=== PATIENT | male | born 1945 | race African-American/Black ===

== ENCOUNTER 2017-01-23 21:27 | Emergency (ER) | payer MEDICARE, MEDICAID ==
[~2017-01-23] VITALS: Ht 177.8 cm; Wt 73.0 kg
[~2017-01-23 21:27] MED LIST: COPAXONE; LYRICA; TYLENOL #3
[2017-01-23] MEDS ORDERED: NA PHOS,M-B/NA PHOS,DI-BA ENEMA 118ML PR ONE (21:45)
[2017-01-23] MEDS ORDERED: LACTULOSE 20G/30ML UDC PO ONE (21:45)
[2017-01-24 02:08] VITALS: BP 111/56
== END 2017-01-24 03:22 | disposition home or self-care (01) ==
LOC: ER 21:27
DX: K59.00 Constipation, unspecified (principal); R03.0 Elevated blood-pressure reading, without diagnosis of hypertension; G35 Multiple sclerosis
CPT/HCPCS: 74000; 99283

== ENCOUNTER 2017-02-19 23:11 | Inpatient (IN) | payer MEDICARE, MEDICAID ==
[~2017-02-19] VITALS: Ht 165.1 cm; Wt 64.9 kg
[2017-02-19] MEDS ORDERED: SODIUM CHLORIDE 0.9% 1,000 ML IV ONE (23:39)
[2017-02-19] MEDS ORDERED: ACETAMINOPHEN 325MG TABLET PO STA (23:39)
[2017-02-19] MEDS ORDERED: PIPERACILLIN/TAZ 3.375G PREMIX 50 ML IV ONE (23:45)
[2017-02-19] MEDS ORDERED: METRONIDAZOLE 500 MG PREMIX 100 ML IV ONE (23:45)
[2017-02-20 00:27] LABS: BASOPHILS % 0.4 % (0.0-2.0); EOSINOPHILS % 2.8 % (0.0-5.0); HEMATOCRIT. 35.2 % (42.0-52.0); HEMOGLOBIN. 11.7 g/dL (14.0-18.0); MEAN CORPUSCULAR HEMOGLOBIN 27.4 pg (28.0-32.0); MEAN CORPUSCULAR VOLUME 82.2 fL (80.0-94.0); NEUTROPHILS % 68.8 % (40.0-76.0); PLATELET 212 x1000/uL (130-400); RED BLOOD CELL COUNT 4.28 mill/uL (4.7-6.1); RED CELL DISTRIBUTION WIDTH 17.3 % (11.6-14.6)
[2017-02-20] MEDS ORDERED: LEVOFLOXACIN 250MG TABLET PO ONE (00:30)
[2017-02-20] MEDS ORDERED: METRONIDAZOLE 500MG TABLET PO ONE (00:30)
[2017-02-20 00:31] LABS: INR 1.2; PROTHROMBIN TIME 12.3 sec (9.4-11.6)
[2017-02-20 00:33] LABS: CARBON DIOXIDE 26 mEq/L (21-32); CHLORIDE 105 mEq/L (98-107); ETHANOL BLOOD < 10 mg/dL; TROPONIN I < 0.02 ng/mL (0.00-0.04)
[2017-02-20 02:20] VITALS: BP 135/61
[2017-02-20 04:00] VITALS: BP 135/61
[2017-02-20] MEDS ORDERED: DIPHENHYDRAMINE 50MG/ML VIAL IV PRN (06:30)
[2017-02-20] MEDS ORDERED: IPRATROPIUM/ALBUTEROL 0.5-3(2.5)MG/3ML NEB INH PRN (06:30)
[2017-02-20] MEDS ORDERED: LORAZEPAM 2MG/ML CPJ IV PRN (06:30)
[2017-02-20] MEDS ORDERED: ONDANSETRON HCL 4MG/2ML VIAL IV PRN (06:30)
[2017-02-20] MEDS ORDERED: MAGNESIUM/ALUMINUM HYDROXIDE/SIMETHICONE 30ML UDC PO PRN (06:30)
[2017-02-20] MEDS ORDERED: CLONIDINE 0.1MG TABLET PO PRN (06:30)
[2017-02-20] MEDS ORDERED: GUAIFENESIN 200MG/10ML SUGAR FREE UDC PO PRN (06:30)
[2017-02-20] MEDS ORDERED: ACETAMINOPHEN 325MG TABLET PO PRN (06:30)
[2017-02-20] MEDS ORDERED: NA PHOS,M-B/NA PHOS,DI-BA ENEMA 118ML PR PRN (06:30)
[2017-02-20] MEDS: METRONIDAZOLE 500MG TABLET PO SCH ×3 (07:00→21:44)
[2017-02-20] MEDS: SUCRALFATE 1 G/10 ML UDC PO SCH ×4 (07:00→21:42)
[2017-02-20 08:00] VITALS: BP 113/58
[2017-02-20] MEDS: ENOXAPARIN 40MG/0.4ML SYR SUBCUT SCH (08:19)
[2017-02-20] MEDS: PREGABALIN 75MG CAPSULE PO SCH ×2 (08:19→21:43)
[2017-02-20] MEDS: FAMOTIDINE 20MG TABLET PO SCH ×2 (08:19→21:43)
[2017-02-20] MEDS ORDERED: DOCUSATE SODIUM 100MG CAPSULE PO PRN (09:00)
[2017-02-20 16:00] VITALS: BP 139/75
[2017-02-20 20:00] VITALS: BP 147/65
[2017-02-20] MEDS ORDERED: ZOLPIDEM TARTRATE 5MG TABLET PO PRN (21:00)
[2017-02-20] MEDS: TRAMADOL 50MG TABLET PO PRN (21:43)
[2017-02-21] VITALS: BP 122/64
[2017-02-21 04:00] VITALS: BP 122/69
[2017-02-21] MEDS: METRONIDAZOLE 500MG TABLET PO SCH ×3 (06:31→21:16)
[2017-02-21] MEDS: TRAMADOL 50MG TABLET PO PRN ×2 (06:32→15:55)
[2017-02-21] MEDS: SUCRALFATE 1 G/10 ML UDC PO SCH ×4 (06:32→21:12)
[2017-02-21 08:00] VITALS: BP 129/69
[2017-02-21] MEDS: ENOXAPARIN 40MG/0.4ML SYR SUBCUT SCH (09:00)
[2017-02-21] MEDS: FAMOTIDINE 20MG TABLET PO SCH ×2 (09:27→21:12)
[2017-02-21] MEDS: PREGABALIN 75MG CAPSULE PO SCH ×2 (09:27→21:12)
[2017-02-21] MEDS: LEVOFLOXACIN 500MG TABLET PO SCH (11:10)
[2017-02-21 12:00] VITALS: BP 127/73
[2017-02-21 17:19] VITALS: BP 135/66
[2017-02-22] VITALS: BP 132/71
[2017-02-22] MEDS: TRAMADOL 50MG TABLET PO PRN ×2 (03:28→11:19)
[2017-02-22 04:00] VITALS: BP 130/76
[2017-02-22] MEDS: SUCRALFATE 1 G/10 ML UDC PO SCH ×2 (06:16→11:18)
[2017-02-22] MEDS: METRONIDAZOLE 500MG TABLET PO SCH (06:16)
[2017-02-22 08:00] VITALS: BP_SYST 128; BP_DIAS 70; BP_DIAS 73
[2017-02-22] MEDS: PREGABALIN 75MG CAPSULE PO SCH (08:49)
[2017-02-22] MEDS: ENOXAPARIN 40MG/0.4ML SYR SUBCUT SCH (08:49)
[2017-02-22] MEDS: FAMOTIDINE 20MG TABLET PO SCH (08:49)
[2017-02-22] MEDS: LEVOFLOXACIN 500MG TABLET PO SCH (11:19)
[2017-02-22 12:00] VITALS: BP 137/74
[2017-02-22 13:59] VITALS: BP 128/73
== END 2017-02-22 15:59 | disposition home health service (06) | DRG 392 ==
LOC: ER 23:11 → 8WST 02-20 01:25 → EDBEDREQ 02-20 01:33 → ENRESERV 02-20 01:55
PROVIDERS: ADMIT Internal Medicine; ATTEND Internal Medicine
DX: K52.9 Noninfective gastroenteritis and colitis, unspecified (principal); E44.0 Moderate protein-calorie malnutrition; G35 Multiple sclerosis; D63.8 Anemia in other chronic diseases classified elsewhere; E87.6 Hypokalemia; Z99.3 Dependence on wheelchair; Z68.23 Body mass index [BMI] 23.0-23.9, adult; Z79.899 Other long term (current) drug therapy
CPT/HCPCS: 36415; 71010; 74176; 80053; 83605; 83880; 84484; 85025; 85610; 87015; 87040; 87045; 87427; 87449; 87493; 93005; 93970; 97162; 99285; G0482; J1650; J2060; J2543; J3490; J7030

== ENCOUNTER 2017-02-27 15:03 | Emergency (ER) | payer MEDICARE, MEDICAID ==
[~2017-02-27] VITALS: Ht 170.2 cm; Wt 60.0 kg
[2017-02-27 17:33] LABS: HEMATOCRIT. 39.8 % (42.0-52.0); HEMOGLOBIN. 13.1 g/dL (14.0-18.0); MEAN CORPUSCULAR HEMOGLOBIN 26.6 pg (28.0-32.0); MEAN CORPUSCULAR VOLUME 80.8 fL (80.0-94.0); MEAN PLATELET VOLUME 9.1 fl (7.4-10.4); PLATELET 306 x1000/uL (130-400); RED BLOOD CELL COUNT 4.93 mill/uL (4.7-6.1); RED CELL DISTRIBUTION WIDTH 17.9 % (11.6-14.6)
[2017-02-27 17:34] LABS: CARBON DIOXIDE 26 mEq/L (21-32); CHLORIDE 108 mEq/L (98-107)
[2017-02-27 17:37] LABS: INR 1.2; PROTHROMBIN TIME 12.1 sec (9.4-11.6)
[2017-02-27 17:43] LABS: CLARITY URINE CLEAR (CLEAR); COLOR URINE DARK YELLOW (YELLOW); GLUCOSE URINE NEGATIVE (NEGATIVE); KETONES URINE TRACE (NEGATIVE); LEUKOCYTE ESTERASE URINE NEGATIVE (NEGATIVE); NITRITE URINE NEGATIVE (NEGATIVE); OCCULT BLOOD URINE 2+ (NEGATIVE); PROTEIN URINE 1+ (NEGATIVE); SPECIFIC GRAVITY URINE 1.029 (1.005-1.030); UROBILINOGEN URINE 0.2 E.U./dL (0.2-1.0)
[2017-02-27 18:30] LABS: PLATELET ESTIMATE NORMAL
[2017-02-28 10:05] VITALS: BP 120/64
== END 2017-02-28 10:23 | disposition home or self-care (01) ==
LOC: ER 15:32 → CANBEDREQ 22:06 → ER 02-28 10:23
DX: R19.7 Diarrhea, unspecified (principal); R00.0 Tachycardia, unspecified; J98.11 Atelectasis; G35 Multiple sclerosis
CPT/HCPCS: 36415; 71010; 80053; 81001; 83605; 85025; 85610; 87040; 87086; 87493; 93005; 99285

== ENCOUNTER 2017-03-22 14:54 | Emergency (ER) | payer MEDICARE, MEDICAID ==
[~2017-03-22] VITALS: Ht 165.1 cm; Wt 66.0 kg
[2017-03-22 16:13] LABS: BASOPHILS % 0.3 % (0.0-2.0); EOSINOPHILS % 1.8 % (0.0-5.0); HEMATOCRIT. 37.5 % (42.0-52.0); HEMOGLOBIN. 12.6 g/dL (14.0-18.0); LYMPHOCYTES % 14.4 % (20.0-50.0); MEAN CORPUSCULAR VOLUME 80.3 fL (80.0-94.0); MEAN PLATELET VOLUME 8.4 fl (7.4-10.4); MONOCYTES % 9.1 % (2.0-8.0); NEUTROPHILS % 74.4 % (40.0-76.0); PLATELET 207 x1000/uL (130-400); RED BLOOD CELL COUNT 4.67 mill/uL (4.7-6.1); RED CELL DISTRIBUTION WIDTH 18.3 % (11.6-14.6)
[2017-03-22 16:19] LABS: CHLORIDE 108 mEq/L (98-107)
[2017-03-22 16:27] LABS: CARBON DIOXIDE 25 mEq/L (21-32)
[2017-03-22 17:51] LABS: CLARITY URINE CLEAR (CLEAR); COLOR URINE YELLOW (YELLOW); GLUCOSE URINE NEGATIVE (NEGATIVE); KETONES URINE 2+ (NEGATIVE); LEUKOCYTE ESTERASE URINE NEGATIVE (NEGATIVE); NITRITE URINE NEGATIVE (NEGATIVE); OCCULT BLOOD URINE 2+ (NEGATIVE); PH URINE 5.5 (4.5-8.0); PROTEIN URINE NEGATIVE (NEGATIVE); SPECIFIC GRAVITY URINE 1.024 (1.005-1.030)
[2017-03-22] MEDS ORDERED: KETOROLAC 60MG/2ML VIAL IM ONE (18:00)
[2017-03-22 18:20] LABS: *AMPHETAMINES SCREEN URINE NEGATIVE (NEGATIVE); *BARBITURATES SCREEN URINE NEGATIVE (NEGATIVE); *BENZODIAZEPINES SCREEN URINE NEGATIVE (NEGATIVE); *COCAINE SCREEN URINE NEGATIVE (NEGATIVE); CANNABINOID URINE SCREEN NEGATIVE (NEGATIVE); METHADONE URINE SCREEN NEGATIVE (NEGATIVE); OPIATES URINE SCREEN NEGATIVE (NEGATIVE); PHENCYCLIDINE URINE SCREEN NEGATIVE (NEGATIVE)
[2017-03-22 20:55] VITALS: BP 132/77
== END 2017-03-22 21:06 | disposition home or self-care (01) ==
LOC: ER 15:02
DX: G89.29 Other chronic pain (principal); G35 Multiple sclerosis
CPT/HCPCS: 36415; 80053; 80305; 81001; 85025; 96372; 99284; J1885

== ENCOUNTER 2019-09-21 00:27 | Inpatient (IN) | payer MEDICARE, MEDICAID ==
[~2019-09-21] VITALS: Ht 165.1 cm; Wt 66.7 kg
[~2019-09-21 00:27] MED LIST changes: +COPAJ SUBCUT; -COPAXONE; +FERR325T6 MT; -LYRICA; +PANT40TA4 MT; +PREG100C MT; +SUCR1ORA15 PO
[2019-09-21] MEDS ORDERED: PANTOPRAZOLE 80 MG in SODIUM CHLORIDE 0.9% 100 ML IV STA (00:43)
[2019-09-21] MEDS ORDERED: SODIUM CHLORIDE 0.9% 1,000 ML IV ONE ×2 (00:43→03:08)
[2019-09-21] MEDS ORDERED: ONDANSETRON HCL 4MG/2ML INJ IV STA (00:43)
[2019-09-21] MEDS ORDERED: PANTOPRAZOLE SODIUM 40 MG/VIAL IV STA (00:43)
[2019-09-21 01:36] LABS: CHLORIDE 106 mEq/L (98-107); MEAN CORPUSCULAR HEMOGLOBIN 28.7 pg (28.0-32.0); MEAN CORPUSCULAR VOLUME 91.4 fL (80.0-94.0); PLATELET 283 x1000/uL (130-400); RED BLOOD CELL COUNT 1.55 mill/uL (4.7-6.1); RED CELL DISTRIBUTION WIDTH 19.2 % (11.6-14.6)
[2019-09-21 01:39] LABS: PROTHROMBIN TIME 11.2 sec (9.6-11.0)
[2019-09-21 01:50] LABS: HEMATOCRIT. 14.1 % (42.0-52.0); HEMOGLOBIN. 4.4 g/dL (14.0-18.0)
[2019-09-21 02:13] LABS: PLATELET ESTIMATE NORMAL
[2019-09-21] MEDS ORDERED: CLONIDINE 0.1MG TABLET PO PRN (07:15)
[2019-09-21] MEDS ORDERED: PANTOPRAZOLE SODIUM 40 MG/VIAL IV SCH (07:15)
[2019-09-21] MEDS ORDERED: HYDROCODONE/ACETAMINOPHEN 5/325MG TABLET PO PRN (07:15)
[2019-09-21] MEDS ORDERED: ONDANSETRON HCL 4MG/2ML INJ IV PRN (07:15)
[2019-09-21] MEDS: SODIUM CHLORIDE 0.9% 1,000 ML IV SCH ×2 (10:02→17:52)
[2019-09-21] MEDS: PANTOPRAZOLE SODIUM 40 MG/VIAL IV SCH ×3 (10:18→22:30)
[2019-09-21] MEDS ORDERED: LEVOFLOXACIN 500MG PREMIX 100 ML IV SCH (10:20)
[2019-09-21 11:18] LABS: HEMATOCRIT 21.9 % (42.0-52.0); HEMOGLOBIN 7.3 g/dL (14.0-18.0)
[2019-09-21 15:25] LABS: CLARITY URINE CLEAR (CLEAR); COLOR URINE YELLOW (YELLOW); KETONES URINE 2+ (NEGATIVE); LEUKOCYTE ESTERASE URINE NEGATIVE (NEGATIVE); NITRITE URINE NEGATIVE (NEGATIVE); OCCULT BLOOD URINE NEGATIVE (NEGATIVE); PH URINE 5.5 (4.5-8.0); PROTEIN URINE NEGATIVE (NEGATIVE); SPECIFIC GRAVITY URINE 1.017 (1.005-1.030)
[2019-09-21 15:39] LABS: *COCAINE SCREEN URINE NEGATIVE (NEGATIVE); METHADONE URINE SCREEN NEGATIVE (NEGATIVE)
[2019-09-21 15:40] LABS: *AMPHETAMINES SCREEN URINE NEGATIVE (NEGATIVE); *BARBITURATES SCREEN URINE NEGATIVE (NEGATIVE); *BENZODIAZEPINES SCREEN URINE NEGATIVE (NEGATIVE); CANNABINOID URINE SCREEN NEGATIVE (NEGATIVE); OPIATES URINE SCREEN PRESUMTIVE POSITIVE (NEGATIVE); PHENCYCLIDINE URINE SCREEN NEGATIVE (NEGATIVE)
[2019-09-21 15:55] VITALS: BP 102/38
[2019-09-21] MEDS ORDERED: CODE30TA2 MT (16:22)
[2019-09-21] MEDS: LORAZEPAM 2MG/ML CPJ IV PRN (17:53)
[2019-09-21 20:00] VITALS: BP 103/50
[2019-09-21] MEDS: PREGABALIN 50 MG CAPSULE PO SCH (20:32)
[2019-09-22] VITALS (9 sets, daily range): BP systolic 93–114; BP diastolic 41–56
[2019-09-22] MEDS: LORAZEPAM 2MG/ML CPJ IV PRN ×2 (01:43→15:55)
[2019-09-22] MEDS: SODIUM CHLORIDE 0.9% 1,000 ML IV SCH ×3 (03:02→23:02)
[2019-09-22] MEDS: PANTOPRAZOLE SODIUM 40 MG/VIAL IV SCH ×3 (09:00→21:00)
[2019-09-22] MEDS: PREGABALIN 50 MG CAPSULE PO SCH ×2 (09:29→23:03)
[2019-09-22] MEDS ORDERED: POTASSIUM CHLORIDE 20MEQ TABLET SR PO ONE (09:30)
[2019-09-22] MEDS ORDERED: POTASSIUM CHLORIDE 20MEQ TABLET SR PO NR ×2 (09:30→17:45)
[2019-09-22] MEDS: LEVOFLOXACIN 500MG PREMIX 100 ML IV SCH ×2 (11:00→14:32)
[2019-09-22 16:06] LABS: CHLORIDE 105 mEq/L (98-107)
[2019-09-22 16:07] LABS: PARTIAL THROMBOPLASTIN TIME 26.6 sec (23.4-31.0); PROTHROMBIN TIME 11.1 sec (9.6-11.0)
[2019-09-22 17:51] LABS: BASOPHILS % 0.2 % (0.0-2.0); EOSINOPHILS % 0.8 % (0.0-5.0); MEAN CORPUSCULAR VOLUME 91.6 fL (80.0-94.0); MEAN PLATELET VOLUME 9.4 fl (7.4-10.4); MONOCYTES % 9.3 % (2.0-8.0); NEUTROPHILS % 74.7 % (40.0-76.0); PLATELET 212 x1000/uL (130-400); RED BLOOD CELL COUNT 1.89 mill/uL (4.7-6.1); RED CELL DISTRIBUTION WIDTH 17.5 % (11.6-14.6)
[2019-09-22 18:06] LABS: HEMOGLOBIN. 5.9 g/dL (14.0-18.0)
[2019-09-22 18:07] LABS: HEMATOCRIT. 17.4 % (42.0-52.0)
[2019-09-22] MEDS ORDERED: POTASSIUM CHLORIDE INJ 40 MEQ in DEXT 5% WATER 250 ML IV NR (20:00)
[2019-09-23] VITALS (12 sets, daily range): BP systolic 99–132; BP diastolic 51–87
[2019-09-23] MEDS: LORAZEPAM 2MG/ML CPJ IV PRN (01:41)
[2019-09-23 03:27] LABS: INR 1.1; PROTHROMBIN TIME 11.9 sec (9.6-11.0)
[2019-09-23] MEDS: SODIUM CHLORIDE 0.9% 1,000 ML IV SCH ×2 (08:38→20:59)
[2019-09-23] MEDS: PANTOPRAZOLE SODIUM 40 MG/VIAL IV SCH ×2 (08:38→20:59)
[2019-09-23] MEDS: PREGABALIN 50 MG CAPSULE PO SCH ×2 (08:39→20:59)
[2019-09-23 10:20] LABS: BASOPHILS % 0.3 % (0.0-2.0); EOSINOPHILS % 0.6 % (0.0-5.0); LYMPHOCYTES % 13.4 % (20.0-50.0); MEAN CORPUSCULAR HEMOGLOBIN 29.8 pg (28.0-32.0); MEAN CORPUSCULAR VOLUME 90.6 fL (80.0-94.0); MEAN PLATELET VOLUME 8.6 fl (7.4-10.4); NEUTROPHILS % 75.7 % (40.0-76.0); PLATELET 217 x1000/uL (130-400); RED BLOOD CELL COUNT 2.26 mill/uL (4.7-6.1); RED CELL DISTRIBUTION WIDTH 16.6 % (11.6-14.6)
[2019-09-23 10:24] LABS: HEMATOCRIT. 20.4 % (42.0-52.0); HEMOGLOBIN. 6.7 g/dL (14.0-18.0)
[2019-09-23] MEDS: LEVOFLOXACIN 500MG PREMIX 100 ML IV SCH (10:25)
[2019-09-23 10:36] LABS: CHLORIDE 114 mEq/L (98-107)
[2019-09-24] VITALS: BP 93/58
[2019-09-24 01:13] LABS: HEMOGLOBIN 7.8 g/dL (14.0-18.0)
[2019-09-24 04:00] VITALS: BP 94/54
[2019-09-24] MEDS: SODIUM CHLORIDE 0.9% 1,000 ML IV SCH ×3 (04:03→23:21)
[2019-09-24 08:00] VITALS: BP 98/55
[2019-09-24] MEDS: PANTOPRAZOLE SODIUM 40 MG/VIAL IV SCH ×2 (08:59→20:33)
[2019-09-24] MEDS: PREGABALIN 50 MG CAPSULE PO SCH ×2 (08:59→20:32)
[2019-09-24] MEDS: LEVOFLOXACIN 500MG PREMIX 100 ML IV SCH (11:40)
[2019-09-24 12:00] VITALS: BP 96/53
[2019-09-24 15:27] LABS: CHLORIDE 116 mEq/L (98-107)
[2019-09-24 15:33] LABS: BASOPHILS % 0.3 % (0.0-2.0); EOSINOPHILS % 1.1 % (0.0-5.0); HEMATOCRIT. 21.4 % (42.0-52.0); HEMOGLOBIN. 7.1 g/dL (14.0-18.0); MEAN CORPUSCULAR HEMOGLOBIN 29.5 pg (28.0-32.0); MEAN CORPUSCULAR VOLUME 88.3 fL (80.0-94.0); MEAN PLATELET VOLUME 8.1 fl (7.4-10.4); MONOCYTES % 9.8 % (2.0-8.0); NEUTROPHILS % 78.8 % (40.0-76.0); PLATELET 194 x1000/uL (130-400); RED BLOOD CELL COUNT 2.42 mill/uL (4.7-6.1); RED CELL DISTRIBUTION WIDTH 16.7 % (11.6-14.6)
[2019-09-24 16:00] VITALS: BP 95/49
[2019-09-24 20:00] VITALS: BP 104/53
[2019-09-24] MEDS: LORAZEPAM 2MG/ML CPJ IV PRN (20:33)
[2019-09-24] MEDS: MORPHINE SULFATE 2 MG/ML CPJ (NOT FOR IM USE) IV PRN (23:18)
[2019-09-25] VITALS (9 sets, daily range): BP systolic 101–125; BP diastolic 49–74
[2019-09-25] MEDS: LORAZEPAM 2MG/ML CPJ IV PRN ×2 (04:33→21:32)
[2019-09-25 06:25] LABS: MEAN CORPUSCULAR HEMOGLOBIN 30.1 pg (28.0-32.0); MEAN CORPUSCULAR VOLUME 90.6 fL (80.0-94.0); MEAN PLATELET VOLUME 8.9 fl (7.4-10.4); PLATELET 197 x1000/uL (130-400); RED BLOOD CELL COUNT 2.31 mill/uL (4.7-6.1); RED CELL DISTRIBUTION WIDTH 16.7 % (11.6-14.6)
[2019-09-25 07:54] LABS: CHLORIDE 116 mEq/L (98-107)
[2019-09-25] MEDS: PANTOPRAZOLE SODIUM 40 MG/VIAL IV SCH ×2 (09:04→20:38)
[2019-09-25] MEDS: PREGABALIN 50 MG CAPSULE PO SCH ×2 (09:05→20:38)
[2019-09-25] MEDS: SODIUM CHLORIDE 0.9% 1,000 ML IV SCH (11:01)
[2019-09-25] MEDS: LEVOFLOXACIN 500MG PREMIX 100 ML IV SCH (11:01)
[2019-09-25] MEDS ORDERED: POTASSIUM CHLORIDE 20MEQ TABLET SR PO NR (12:00)
[2019-09-25 13:25] LABS: NUCLEATED RED BLOOD CELLS 1 /100 WBC; PLATELET ESTIMATE NORMAL
[2019-09-25] MEDS ORDERED: MIDAZOLAM HCL 5 MG/5 ML VIAL ONE (14:06)
[2019-09-25] MEDS ORDERED: SIMETHICONE 40 MG/0.6 ML 30ML ONE (14:06)
[2019-09-25] MEDS ORDERED: FENTANYL CITRATE/PF 50MCG/ML 2ML VIAL ONE (14:07)
[2019-09-25] MEDS ORDERED: MIDAZOLAM HCL 5 MG/5 ML VIAL IV PRN (14:16)
[2019-09-25 23:30] LABS: HEMATOCRIT 21.9 % (42.0-52.0); HEMOGLOBIN 7.2 g/dL (14.0-18.0)
[2019-09-26] VITALS (9 sets, daily range): BP systolic 95–119; BP diastolic 44–63
[2019-09-26] MEDS: MORPHINE SULFATE 2 MG/ML CPJ (NOT FOR IM USE) IV PRN (00:05)
[2019-09-26] MEDS: SODIUM CHLORIDE 0.9% 1,000 ML IV SCH ×3 (00:05→18:29)
[2019-09-26] MEDS: LORAZEPAM 2MG/ML CPJ IV PRN (02:53)
[2019-09-26] MEDS: PANTOPRAZOLE SODIUM 40 MG/VIAL IV SCH ×2 (08:59→20:26)
[2019-09-26] MEDS: PREGABALIN 50 MG CAPSULE PO SCH ×2 (09:00→20:26)
[2019-09-26 12:37] LABS: MEAN CORPUSCULAR VOLUME 89.9 fL (80.0-94.0); MEAN PLATELET VOLUME 8.8 fl (7.4-10.4); PLATELET 150 x1000/uL (130-400); RED BLOOD CELL COUNT 2.22 mill/uL (4.7-6.1)
[2019-09-26 12:40] LABS: HEMOGLOBIN. 6.4 g/dL (14.0-18.0)
[2019-09-26 12:41] LABS: HEMATOCRIT. 19.9 % (42.0-52.0)
[2019-09-26 12:43] LABS: CHLORIDE 117 mEq/L (98-107)
[2019-09-26 13:06] LABS: PLATELET ESTIMATE NORMAL
[2019-09-27] VITALS: BP 107/58
[2019-09-27] MEDS: SODIUM CHLORIDE 0.9% 1,000 ML IV SCH ×2 (03:02→13:02)
[2019-09-27 04:00] VITALS: BP 122/56
[2019-09-27 07:36] LABS: BASOPHILS % 0.3 % (0.0-2.0); EOSINOPHILS % 1.7 % (0.0-5.0); HEMATOCRIT. 22.8 % (42.0-52.0); HEMOGLOBIN. 7.5 g/dL (14.0-18.0); LYMPHOCYTES % 19.9 % (20.0-50.0); MEAN CORPUSCULAR HEMOGLOBIN 28.8 pg (28.0-32.0); MEAN CORPUSCULAR VOLUME 87.6 fL (80.0-94.0); MEAN PLATELET VOLUME 8.8 fl (7.4-10.4); MONOCYTES % 8.7 % (2.0-8.0); NEUTROPHILS % 69.4 % (40.0-76.0); PLATELET 161 x1000/uL (130-400); RED CELL DISTRIBUTION WIDTH 17.5 % (11.6-14.6)
[2019-09-27 07:43] LABS: CHLORIDE 113 mEq/L (98-107)
[2019-09-27 08:00] VITALS: BP_SYST 104; BP_SYST 127; BP_DIAS 42; BP_DIAS 45
[2019-09-27] MEDS ORDERED: SUCR1ORA15 PO (08:50)
[2019-09-27] MEDS ORDERED: DOCU250C14 MT (08:50)
[2019-09-27] MEDS ORDERED: PANT40TA4 MT (08:50)
[2019-09-27] MEDS ORDERED: FERR325T6 MT (08:50)
[2019-09-27] MEDS: PREGABALIN 50 MG CAPSULE PO SCH (08:58)
[2019-09-27] MEDS: PANTOPRAZOLE SODIUM 40 MG/VIAL IV SCH (09:44)
[2019-09-27 12:00] VITALS: BP 127/45
== END 2019-09-27 15:35 | disposition home or self-care (01) | DRG 377 ==
LOC: ER 00:37 → EDBEDREQSVC 03:09 → 5WST 03:09 → EDBEDREQTM 03:09 → SUPCPDRO 07:02 → CANRESERV 07:33 → ENRESERV 07:33 → EDBEDREQSVC 09:47 → ENRESERV 14:23
PROVIDERS: ADMIT Internal Medicine Nephrology; ATTEND Internal Medicine Nephrology
PROC: 30233N1 Transfusion of Nonautologous Red Blood Cells into Peripheral Vein, Percutaneous Approach (ICD-10-PCS; principal; 2019-09-21)
PROC: 02HV33Z Insertion of Infusion Device into Superior Vena Cava, Percutaneous Approach (ICD-10-PCS; 2019-09-22)
PROC: B548ZZA Ultrasonography of Superior Vena Cava, Guidance (ICD-10-PCS; 2019-09-22)
PROC: B5181ZA Fluoroscopy of Superior Vena Cava using Low Osmolar Contrast, Guidance (ICD-10-PCS; 2019-09-22)
PROC: 0DB68ZX Excision of Stomach, Via Natural or Artificial Opening Endoscopic, Diagnostic (ICD-10-PCS; 2019-09-25)
DX: K25.4 Chronic or unspecified gastric ulcer with hemorrhage (principal); E43 Unspecified severe protein-calorie malnutrition; I82.512 Chronic embolism and thrombosis of left femoral vein; D62 Acute posthemorrhagic anemia; K29.70 Gastritis, unspecified, without bleeding; E87.6 Hypokalemia; F17.210 Nicotine dependence, cigarettes, uncomplicated; G35 Multiple sclerosis; G89.4 Chronic pain syndrome; J44.9 Chronic obstructive pulmonary disease, unspecified; K44.9 Diaphragmatic hernia without obstruction or gangrene; R73.03 Prediabetes; Z86.19 Personal history of other infectious and parasitic diseases; Z87.11 Personal history of peptic ulcer disease; Z68.24 Body mass index [BMI] 24.0-24.9, adult; Z79.899 Other long term (current) drug therapy; Z71.51 Drug abuse counseling and surveillance of drug abuser
CPT/HCPCS: 36415; 36573; 71045; 76937; 80048; 80053; 80305; 81003; 83735; 84145; 85014; 85018; 85025; 85384; 86850; 86900; 86920; 88305; 88312; 88313; 93306; 93970; 97162; 99152; 99291; C1725; C9113; J1956; J2060; J2250; J2270; J2405; J3010; J3480; J7030; J7050; J7060; P9016; G0500